=== PATIENT | female | born 1985 | race Caucasian/White ===

== ENCOUNTER 2024-03-01 07:24 | Day surgery (SDC) | payer BC ==
[2024-03-01] MEDS: IV FLUID CONTINUATION 1,000 ML IV ONE (08:10)
[2024-03-01] MEDS: ONDANSETRON 4 MG/2 ML VIAL IVP ONE (08:13)
[2024-03-01] MEDS: HEPARIN SODIUM,PORCINE 5,000 UNIT/ML 1 ML VIAL SQ PRN (08:14)
[2024-03-01] MEDS: SCOPOLAMINE 1 MG/72 HR PATCH TRANSDERM ONE (08:14)
[2024-03-01] MEDS: ACETAMINOPHEN TAB 500 MG TAB PO PRN (08:15)
[2024-03-01] MEDS: LACTATED RINGERS 1,000 ML IV SCH (08:16)
[2024-03-01] MEDS: DEXAMETHASONE SOD PHOSPHATE 4 MG/ML 1 ML VIAL IV ONE (08:16)
--- NOTE | 2024-03-01 08:26 | P.GSHP ---
History of Present Illness H&P Date: 03/01/24 Chief Complaint: Chronic cholecystitis 38-year-old female known to our service. Patient was last seen in the office 1 year ago. Patient with history of intermittent right upper quadrant pains. This is often associated with dark urine and significantly elevated liver enzym es. Patient thought to have had episodes of choledocholithiasis in the past. MRCP was ordered which showed layering gallstones without choledocholithiasis however that was last year. Since then patient has had another . She just was induced in December. Baby is doing well. Says that recently she has not not had any significant pains. Her last severe attack was in August. No recent labs. Patient has history of previous aortic injury during prior elective surgery requiring laparotomy. Patient with a large midline incision. Past Medical History Additional Past Medical History / Comment(s): GALLBLADDER DISORDER, hx liver enzymes elevated back to more normal 12/2023, ( seen by GI) History of Any Multi-Drug Resistant Organisms: None Reported Additional Past Surgical History / Comment(s): D & C. 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 Past Anesthesia/Blood Transfusion Reactions: Postoperative Nausea & Vomiting (PONV) Smoking Status: Never smoker - Past Family History Mother Family Medical History: Diabetes Mellitus Additional Family Medical History / Comment(s): mom had covid - was on vent with resulting COPD Father Family Medical History: Diabetes Mellitus, Hypertension Additional Family Medical History / Comment(s): triple bypass Medications and Allergies Home Medications Medication Instructions Recorded Confirmed Type Multivit with Calcium,Iron,Min 1 each PO DAILY 05/13/23 03/01/24 History [Women's Multivitamin] Ibuprofen [Motrin Ib] 400 - 600 mg PO DIRECTED PRN 02/25/24 03/01/24 History Allergies Allergy/AdvReac Type Severity Reaction Status Date / Time nickel Allergy skin Verified 03/01/24 08:10 irritation Surgical - Exam Vital Signs Temp Pulse Resp BP Pulse Ox 97.5 F L 86 16 131/68 100 03/01/24 08:07 03/01/24 08:07 03/01/24 08:07 03/01/24 08:07 03/01/24 08:07 Physical exam: General: Well-developed, well-nourished HEENT: Normocephalic, sclerae nonicteric Abdomen: Nontender, nondistended, prior midline scar Extremities: No edema Neuro: Alert and oriented Assessment and Plan (1) Chronic cholecystitis Narrative/Plan: 38-year-old female with chronic cholecystitis. Suspect previous choledocholithiasis. Will proceed with laparoscopic, possible open cholecystectomy at this time. Check CMP preoperatively. Risks of bleeding, infection, bile leak, bile duct injury, retained common bile duct stone, trocar injury, conversion to an open procedure, hernia, anesthesia related complications were reviewed. The patient understands and wishes to proceed. Current Visit: Yes Status: Acute Code(s): K81.1 - CHRONIC CHOLECYSTITIS SNOMED Code(s): 25557462
[2024-03-01] MEDS: MIDAZOLAM 2 MG/2 ML VIAL IV PRN (08:28)
[2024-03-01] MEDS ORDERED: ePHEDrine 50 MG/ML 1 ML VIAL ONE (08:43)
[2024-03-01] MEDS ORDERED: MIDAZOLAM 2 MG/2 ML VIAL ONE (08:43)
[2024-03-01] MEDS ORDERED: KETOROLAC 15 MG/ML 1 ML VIAL ONE (08:43)
[2024-03-01] MEDS ORDERED: diphenhydrAMINE 50 MG/ML 1 ML VIAL ONE (08:43)
[2024-03-01] MEDS ORDERED: SUCCINYLCHOLINE CHLORIDE 200 MG/10 ML VIAL IV ONE (08:43)
[2024-03-01] MEDS ORDERED: GLYCOPYRROLATE 0.2 MG/ML 2 ML VIAL ONE (08:43)
[2024-03-01] MEDS ORDERED: LIDOCAINE 1% INJ 10MG/ML (20 ML MDV) ONE (08:43)
[2024-03-01] MEDS ORDERED: PROPOFOL 10 MG/ML 20 ML VIAL IV ONE (08:43)
[2024-03-01] MEDS ORDERED: PHENYLEPHRINE-0.9% NACL SYG 1,000 MCG/10 ML SYRINGE ONE (08:43)
[2024-03-01] MEDS ORDERED: HYDROmorphone (PF) 1 MG/ML ONE (08:43)
[2024-03-01] MEDS ORDERED: ROCURONIUM 10 MG/ML (5 ML VIAL) IV ONE (08:43)
[2024-03-01] MEDS ORDERED: NEOSTIGMINE 1 MG/ML 10 ML VIAL ONE (08:43)
[2024-03-01] MEDS ORDERED: fentaNYL (PF) 50 MCG/ML 2 ML AMP ONE (08:43)
[2024-03-01 08:48] LABS: Basophils % (A) 0 %; Eosinophils # (A) 0.1 k/uL (0-0.7); Eosinophils % (A) 2 %; HCT 38.1 % (34.0-46.0); HGB 12.7 gm/dL (11.4-16.0); Lymphocytes % (A) 21 %; MCH 30.3 pg (25.0-35.0); MCHC 33.5 g/dL (31.0-37.0); MCV 90.6 fL (80.0-100.0); Monocytes # (A) 0.2 k/uL (0-1.0); Monocytes % (A) 5 %; Neutrophils # (A) 3.2 k/uL (1.3-7.7); Neutrophils % (A) 70 %; Platelet Count 273 k/uL (150-450); RDW 13.7 % (11.5-15.5); WBC 4.6 k/uL (3.8-10.6)
[2024-03-01 08:57] LABS: ALT 27 U/L (4-34); AST 29 U/L (14-36); African American GFR (CKD) >90 (>60 ml/min/1.73 sqM); Albumin 4.5 g/dL (3.5-5.0); Alkaline Phosphatase 79 U/L (38-126); Anion Gap 9 mmol/L; Blood Urea Nitrogen 15 mg/dL (7-17); Calcium 9.2 mg/dL (8.4-10.2); Carbon Dioxide 23 mmol/L (22-30); Chloride 105 mmol/L (98-107); Glucose 108 mg/dL (74-99); Non-African American GFR(CKD) >90 (>60 ml/min/1.73 sqM); Potassium 3.6 mmol/L (3.5-5.1); Sodium 137 mmol/L (137-145); Total Bilirubin 0.7 mg/dL (0.2-1.3); Total Protein 7.4 g/dL (6.3-8.2)
[2024-03-01] MEDS: BUPIVACAINE (PF) 0.25% 30 ML VIAL SQ ONE ×2 (09:03)
--- NOTE | 2024-03-01 09:53 | P.OP ---
Date of Procedure: 03/01/24 Procedure(s) Performed: PREOPERATIVE DIAGNOSIS: Chronic cholecystitis with history of choledocholithiasis POSTOPERATIVE DIAGNOSIS: Same PROCEDURE: Laparoscopic cholecystectomy SURGEON: Ry IBARRAL: Heriberto tai ANESTHESIA: Gen. COMPLICATIONS: None OPERATIVE PROCEDURE: The patient was brought and placed on the operating room table in the supine position. The patient was placed under general anesthesia at that time. The abdomen was prepped and draped in the usual sterile fashion. A small horizontal incision in the left upper quadrant was made. The optical trocar was used to gain entrance into the peritoneal cavity. The patient had minimal adhesions to the omentum and the midline in the supraumbilical location. Following that our 4 main trocars were placed under direct visualization. Our periumbilical incision was made vertically through her previous scar just above the umbilicus. 2 additional 5 mm trochars were placed in the right upper quadrant under direct visualization. A 12 mm trocar was advanced into the epigastric incision site. The gallbladder was retracted superiorly and laterally. The peritoneum overlying the infundibulum was bluntly dissected. The patient's cystic duct was visualized. The junction between the cystic duct common and hepatic duct was identified. The critical view of safety was achieved after blunt dissection. The cystic duct was then divided after placement of 3 12 mm clips on the patient's side and one on the specimen side. The cystic artery was identified and clipped as well. A small vessel was seen along the gallbladder fossa and clipped as well. A small opening in the fundus of the gallbladder was made during our cautery dissection. The patient had numerous small 1 to 2 mm stones within the gallbladder lumen. The stones that were visualized coming out of this defect were suctioned out. This would explain the patient's frequent attacks of choledocholithiasis given the small size of the stones. The gallbladder was then removed from the liver bed using electrocautery. The gallbladder was then removed from the epigastric trocar site with an Endo Catch bag. The gallbladder fossa was irrigated with saline. There was no evidence of any bleeding or biliary drainage seen. The fascia at the 12 millimeter site was closed using a Angel-Nima 0 Vicryl stitch. The trochars were then removed. The skin at all 5 sites was closed using a 4-0 Monocryl stitch. Skin glue was utilized on the incision sites. At the end of this procedure the sponge and needle counts were correct. DISPOSITION: Stable to the recovery room
[2024-03-01 10:01] VITALS: TEMP 97.8
[2024-03-01] MEDS: HYDROmorphone 0.5 MG/0.5 ML SYRINGE IVP PRN (10:12)
[2024-03-01 10:14] VITALS: RESP 16
[2024-03-01] MEDS: LACTATED RINGERS 1,000 ML IV ONE (10:15)
[2024-03-01 11:49] VITALS: BP 107/67; PULSE 66
[2024-03-01] MEDS ORDERED: ACETAMINOPHEN TAB 325 MG TAB PO SCH (12:00)
[2024-03-01] MEDS ORDERED: IBUPROFEN 600 MG TAB PO SCH (13:00)
== END 2024-03-01 12:52 | disposition home or self-care (01) ==
LOC: OR 07:24
PROVIDERS: ATTEND Surgery
DX: K80.10 Calculus of gallbladder with chronic cholecystitis without obstruction (principal); Z91.89 Other specified personal risk factors, not elsewhere classified; Z91.09 Other allergy status, other than to drugs and biological substances; Z79.899 Other long term (current) drug therapy
CPT/HCPCS: 80053; 81025; 85025; 88304